=== PATIENT | male | born 1995 | race Caucasian/White ===

== ENCOUNTER 2021-03-27 10:15 | Emergency (ER) | payer BC ==
[~2021-03-27] VITALS: Ht 167.6 cm; Wt 73.6 kg
--- NOTE | 2021-03-27 10:58 | NUR ---
PER PT PARTNER CAN COME BACK TO ROOM. PT TEARFUL UPON ASSESSMENT. ROOM MADE SAFE. GARAGE DOORS DOWN. SITTER AT BEDSIDE. WILL CONTINUE TO MONITOR
--- NOTE | 2021-03-27 11:23 | NUR ---
BLOOD AND URINE COLLECTED.
[2021-03-27 11:32] LABS: BASOPHILS % (AUTO) 1 % (0-1); EOSINOPHILS % (AUTO) 4 % (1-7); LYMPHOCYTES % (AUTO) 32 % (22-44); MEAN CORPUSCULAR HEMOGLOBIN 29.2 pg (27.5-34.5); MEAN CORPUSCULAR HGB CONC 33.9 g/dL (33.2-36.2); MEAN PLATELET VOLUME 8.6 fL (7.4-10.4); MONOCYTES % (AUTO) 8 % (2-9); NEUTROPHILS % (AUTO) 56 % (42-75); PLATELET COUNT 218 x10^3/uL (130-400); RED BLOOD COUNT 4.99 x10^6/uL (4.38-5.82); RED CELL DISTRIBUTION WIDTH 12.6 % (9.4-14.8)
[2021-03-27 11:41] LABS: ALBUMIN 4.4 g/dL (3.4-5.0); ANION GAP 6 mmol/L (5-15); CALCIUM 8.8 mg/dL (8.5-10.1); CHLORIDE 105 mmol/L (98-107)
[2021-03-27 11:53] LABS: ALANINE AMINOTRANSFERASE 47 U/L (12-78); ALKALINE PHOSPHATASE 74 U/L (45-117); BILIRUBIN,TOTAL 0.8 mg/dL (0.2-1.0); CREATININE 0.96 mg/dL (0.7-1.3); TOTAL PROTEIN 8.1 g/dL (6.4-8.2)
[2021-03-27 11:54] LABS: SALICYLATE LEVEL < 1.7 mg/dL (2.8-20.0)
--- NOTE | 2021-03-27 12:03 | NUR ---
MEAL TRAY PROVIDED TO PTProsper FOLEY AT BEDSIDE. SUICIDE PERCAUTIONS MAINTED. WILL CONTINUE TO MONITOR
[2021-03-27 12:08] LABS: AMPHETAMINE SCREEN, URINE Negative (Negative); BARBITURATE SCREEN, URINE Negative (Negative); BENZODIAZEPINE SCREEN, URINE Negative (Negative); CANNABINOID SCREEN, URINE Negative (Negative); COCAINE SCREEN, URINE Negative (Negative); METHADONE SCREEN, URINE Negative (Negative); OPIATE SCREEN, URINE Negative (Negative)
--- NOTE | 2021-03-27 13:25 | NUR ---
MATIAS YANG AT BEDSIDE TALKING WITH PT.
--- NOTE | 2021-03-27 13:28 | NUR ---
CARE TRANSFERED REPORT GIVEN TO SANA LOBATO
[2021-03-27] MEDS ORDERED: QUETIAPINE 25MG TABLET PO ONE (13:30)
[2021-03-27] MEDS ORDERED: QUET25TA5 PO (13:43)
[2021-03-27] MEDS ORDERED: QUETIAPINE 25MG TABLET ONE (13:49)
[2021-03-27 14:35] VITALS: BP 129/76
== END 2021-03-27 14:37 | disposition home or self-care (01) ==
LOC: ED 11:23
DX: F32.9 Major depressive disorder, single episode, unspecified (principal); F39 Unspecified mood [affective] disorder; R45.851 Suicidal ideations; R00.0 Tachycardia, unspecified
CPT/HCPCS: 36415; 80053; 80299; 80307; 80320; 80329; 84443; 85025; 93005; 99284; G0480